=== PATIENT | male | born 1945 | race Caucasian/White ===

== ENCOUNTER 2018-11-15 20:21 | Emergency (ER) | payer MEDICARE ==
[~2018-11-15] VITALS: Ht 180.3 cm; Wt 95.2 kg
[~2018-11-15 20:21] MED LIST: AMLO5 PO; Aspir 8181 MG PO; CIPR500 PO; DIAZ10 PO; DOC250 PO; DOXY100T53 PO; FURO20 PO; FURO40 PO; GABA300 PO; HYDACE10B PO; HYDACE5; HYDCOR2.5C PR; HYDROCODONE; LACT10SY PO; LEVFLO500 PO; LIDO700A20 TOP; LISI20 PO; LOSA50 PO; METR500 PO; OMEG1CAP30 PO; ONDA4ODT MM; ONDA8 PO; OXYACE5T PO; OXYC15ER PO; OXYC5 PO; PHENA200 PO; POTCHL10ER PO; PROBIOTIC1 EAC1; ROSU10TA PO; RXCLIN PO; SAW PALMETTO PO; SULTRIDS PO; TAMS.4ER PO; TERA5 PO
[2018-11-15 20:54] LABS: BASOPHILS ABSOLUTE AUTO 0.04 K/mm3 (0.00-0.23); BASOPHILS PERCENT AUTO 0 % (0-2); EOSINOPHILS ABSOLUTE AUTO 0.03 K/mm3 (0.00-0.68); EOSINOPHILS PERCENT AUTO 0 % (0-6); Hemoglobin 13.1 g/dL (13.5-17.5); IMMATURE GRAN ABSOLUTE AUTO 0.06 K/mm3 (0.00-0.10); IMMATURE GRAN PERCENT AUTO 1 % (0-1); LYMPHOCYTES ABSOLUTE AUTO 1.14 K/mm3 (0.84-5.20); LYMPHOCYTES PERCENT AUTO 9 % (21-46); MONOCYTES ABSOLUTE AUTO 1.68 K/mm3 (0.16-1.47); MONOCYTES PERCENT AUTO 14 % (4-13); Mean Corpuscular HGB 31.2 pg (26.0-34.0); Mean Corpuscular HGB Conc 33.6 g/dL (31.5-36.5); Mean Corpuscular Volume 93 fL (80-100); Mean Platelet Volume 9.3 fL (9.1-12.4); NEUTROPHILS ABSOLUTE AUTO 9.51 K/mm3 (1.96-9.15); NEUTROPHILS PERCENT AUTO 76 % (41-73); Platelet Count 243 K/mm3 (150-400); RDW Coefficient Variation 11.6 % (11.7-14.2); RDW Standard Deviation 39.5 fL (35.1-46.3); White Blood Cell Count 12.46 K/mm3 (4.00-11.30)
[2018-11-15 21:15] LABS: Ethanol (Alcohol), Blood, Med <3 mg/dL; Magnesium, Blood 1.9 mg/dL (1.6-2.4); Troponin I <0.015 ng/mL (0.000-0.040)
[2018-11-15 21:16] LABS: Alanine Aminotransfer (ALT/SGP 35 U/L (12-78); Albumin, Blood 3.1 g/dL (3.4-5.0); Albumin/Globulin Ratio 0.8 (0.8-1.8); Alk Phos 81 U/L (50-136); Anion Gap 7 mmol/L (6-16); Aspartate Aminotrans (AST/SGOT 24 U/L (12-37); Blood Urea Nitrogen 13 mg/dL (8-24); Bun/Creatinine Ratio 16.7 (12.0-20.0); CO2, Blood 26 mmol/L (21-32); Calcium, Blood 9.6 mg/dL (8.5-10.1); Chloride, Blood 99 mmol/L (98-108); Creatinine, Blood 0.78 mg/dL (0.60-1.20); Globulin, Blood 3.9 g/dL (2.2-4.0); Glomerular Filtration Rate >60 (60-); Glucose, Blood 111 mg/dL (70-99); Potassium, Blood 3.3 mmol/L (3.5-5.5); Sodium, Blood 132 mmol/L (136-145)
[2018-11-15 22:44] LABS: Source, Urine Clean Catch
[2018-11-15 22:46] LABS: Appearance, Urine Cloudy (Clear); Bilirubin, Urine Neg (Neg); Blood, Urine 4+ (Neg); Color, Urine Amber (P-Yellow); Glucose Qualitative, Urine Neg (Neg); Ketones, Urine 2+ (Neg); Leukocyte Esterase, Urine 3+ (Neg); Nitrite, Urine Pos (Neg); Protein, Urine 2+ (Neg); Urobilinogen, Urine NORM (Normal)
[2018-11-15] MEDS ORDERED: METCAR500 PO (22:51)
[2018-11-15 22:53] LABS: Red Blood Cells, Urine 0-2 /hpf (0-2); White Blood Cells, Urine TNTC /hpf (0-5)
[2018-11-15 22:54] LABS: Bacteria Many /hpf; Squamous Epithelial Cells Rare /hpf (Few)
[2018-11-16] MEDS ORDERED: CEPH500 PO (00:04)
== END 2018-11-16 01:05 | disposition home or self-care (01) ==
LOC: ER 20:21
PROVIDERS: Emergency Medicine
DX: N39.0 Urinary tract infection, site not specified (principal); I10 Essential (primary) hypertension; Z79.899 Other long term (current) drug therapy
CPT/HCPCS: 36415; 71046; 80053; 81001; 83690; 83735; 84484; 85025; 87077; 87086; 87186; 93005; 93010; 96361; 96365; 96375; 99284-25; G0480; J0696; J1170; J2405; J7030

== ENCOUNTER 2019-03-27 18:47 | Emergency (ER) | payer MEDICARE ==
[~2019-03-27] VITALS: Ht 175.3 cm; Wt 108.9 kg
[~2019-03-27 18:47] MED LIST changes: +CEPH500 PO; +METCAR500 PO
[2019-03-27 19:46] LABS: BASOPHILS ABSOLUTE AUTO 0.04 K/mm3 (0.00-0.23); BASOPHILS PERCENT AUTO 1 % (0-2); EOSINOPHILS ABSOLUTE AUTO 0.63 K/mm3 (0.00-0.68); EOSINOPHILS PERCENT AUTO 7 % (0-6); Hematocrit 40.2 % (37.0-53.0); Hemoglobin 12.8 g/dL (13.5-17.5); IMMATURE GRAN ABSOLUTE AUTO 0.02 K/mm3 (0.00-0.10); IMMATURE GRAN PERCENT AUTO 0 % (0-1); LYMPHOCYTES PERCENT AUTO 30 % (21-46); MONOCYTES ABSOLUTE AUTO 0.68 K/mm3 (0.16-1.47); MONOCYTES PERCENT AUTO 8 % (4-13); Mean Corpuscular HGB Conc 31.8 g/dL (31.5-36.5); Mean Corpuscular Volume 94 fL (80-100); Mean Platelet Volume 9.4 fL (9.1-12.4); NEUTROPHILS ABSOLUTE AUTO 4.73 K/mm3 (1.96-9.15); NEUTROPHILS PERCENT AUTO 54 % (41-73); Platelet Count 271 K/mm3 (150-400); RDW Coefficient Variation 12.6 % (11.7-14.2); RDW Standard Deviation 43.4 fL (35.1-46.3); Red Blood Cell Count 4.27 M/mm3 (4.30-5.90)
[2019-03-27 20:06] LABS: Alanine Aminotransfer (ALT/SGP 22 U/L (12-78); Albumin, Blood 3.5 g/dL (3.4-5.0); Alk Phos 100 U/L (50-136); Anion Gap 4 mmol/L (6-16); Aspartate Aminotrans (AST/SGOT 13 U/L (12-37); Bilirubin, Total 0.7 mg/dL (0.1-1.0); Blood Urea Nitrogen 9 mg/dL (8-24); Bun/Creatinine Ratio 11.2 (12.0-20.0); CO2, Blood 28 mmol/L (21-32); Calcium, Blood 9.8 mg/dL (8.5-10.1); Chloride, Blood 109 mmol/L (98-108); Globulin, Blood 3.6 g/dL (2.2-4.0); Glomerular Filtration Rate >60 (60-); Glucose, Blood 104 mg/dL (70-99); Potassium, Blood 3.7 mmol/L (3.5-5.5); Sodium, Blood 141 mmol/L (136-145); Total Protein, Blood 7.1 g/dL (6.4-8.2)
== END 2019-03-27 20:36 | disposition home or self-care (01) ==
LOC: ER 18:47
PROVIDERS: Physician Assistant
DX: E87.70 Fluid overload, unspecified (principal); M48.02 Spinal stenosis, cervical region; F10.20 Alcohol dependence, uncomplicated; R29.898 Other symptoms and signs involving the musculoskeletal system; R60.0 Localized edema; I10 Essential (primary) hypertension; Z85.6 Personal history of leukemia; Z85.841 Personal history of malignant neoplasm of brain; Z88.8 Allergy status to other drugs, medicaments and biological substances; Z88.1 Allergy status to other antibiotic agents; Z79.899 Other long term (current) drug therapy; Z79.891 Long term (current) use of opiate analgesic
CPT/HCPCS: 36415; 72100; 80053; 83880; 85025; 96374; 99283-25; J1170

== ENCOUNTER 2019-04-10 10:05 | Day surgery (SDC) | payer MEDICARE ==
[~2019-04-10] VITALS: Ht 172.7 cm; Wt 107.1 kg
[~2019-04-10 10:05] MED LIST changes: +ALBU90OI INH; +Aspirin EC81 MG PO; +BACLOFEN5 MG PO; +D-MANNOSE PO; +Gentamicin S40 MG/ML IM; +LORA1SY PO; +OXYCODONE HCL E15 MG PO; +POTA10T PO; +PSEU120ER PO; +Procto-Kit28.35 G1 PR; +Robaxin750 MG PO; +STOOL SOFTENER PO; +Saw Palmetto160 MG PO; +Vitamin C100 M1 PO; +[UNRECOGNIZED DRUG - OTHER] PO
[2019-04-10] MEDS ORDERED: OXYC5 PO (10:55)
--- NOTE | 2019-04-10 11:46 | NUR ---
04/10/19 1146 Nelly Márquez PROCEDURE ROOM ENDO ROOM #1. MONITOR INTACT WITH CONTINUOUS PULSE OXIMETRY AND INTERMITTENT BP.
--- NOTE | 2019-04-10 11:48 | NUR ---
INTO SDS VIA W/C. STANDBY ASSIST TRANSFER TO BE. UNABLE TO STAND FOR WEIGHT. WEIGHT OBTAINED VIA W/C. History, Chart, Medications and Allergies reviewed before start of procedure.Patient confirms NPO status and agrees with scheduled surgery. DUONEB GIVEN PER ANETHESIA
--- NOTE | 2019-04-10 12:35 | NUR ---
RESUMED CARE OF PATIENT.
--- NOTE | 2019-04-10 12:36 | NUR ---
DR SY AT BEDSIDE TALKING TO PATIENT ABOUT PATIENT C/O OF EYE DISCOMFORT TO RIGHT EYE.
--- NOTE | 2019-04-10 12:58 | NUR ---
COFFEE OFFERED TO PATIENT PER REQUEST. RIGHT EYE TREATED WITH ERYTHROMYCIN OINTMENT PER DR SY.
--- NOTE | 2019-04-10 13:25 | NUR ---
1332- Discharge instructions reviewed with patient's . VSS. Breathing RA. verbalizes understanding. Copy given to to take home. Up to dress. assisting patient per her request. 1334- TRANSFERED TO W/C WITH ONE PERSON ASSIST AND ANOTHER NURSE STAND-BY ASSIST. 1337- TRANSVERED TO PERSONAL VEHICLE WITH ONE PERSON ASSIST WTIH ANOTHER NURSE STAND-BY ASSIST.
== END 2019-04-10 13:34 | disposition home or self-care (01) ==
LOC: ORSCMMR 10:05 → ORD 11:00 → ORSCMMR 13:34
PROVIDERS: Internal Medicine Gastroenterology
PROC: 0DBL8ZX Excision of Transverse Colon, Via Natural or Artificial Opening Endoscopic, Diagnostic (ICD-10-PCS; principal; 2019-04-10 11:00)
PROC: 0DBP8ZX Excision of Rectum, Via Natural or Artificial Opening Endoscopic, Diagnostic (ICD-10-PCS; principal; 2019-04-10 11:00)
DX: Z12.11 Encounter for screening for malignant neoplasm of colon (principal); D12.3 Benign neoplasm of transverse colon; K62.1 Rectal polyp; Z86.010 Personal history of colon polyps; K70.30 Alcoholic cirrhosis of liver without ascites; F43.10 Post-traumatic stress disorder, unspecified; G47.33 Obstructive sleep apnea (adult) (pediatric); E78.00 Pure hypercholesterolemia, unspecified; F32.9 Major depressive disorder, single episode, unspecified; J44.9 Chronic obstructive pulmonary disease, unspecified; N40.0 Benign prostatic hyperplasia without lower urinary tract symptoms; Z79.82 Long term (current) use of aspirin; Z79.899 Other long term (current) drug therapy
CPT/HCPCS: 88305; J2405; J2704; J3010; J7120

== ENCOUNTER 2019-08-02 20:06 | Emergency (ER) | payer MEDICARE ==
[~2019-08-02] VITALS: Ht 180.3 cm; Wt 113.4 kg
[2019-08-02] MEDS ORDERED: Keflex500 MG PO (23:52)
== END 2019-08-03 00:53 | disposition home or self-care (01) ==
LOC: ER 20:06
DX: S91.115A Laceration without foreign body of left lesser toe(s) without damage to nail, initial encounter (principal); I10 Essential (primary) hypertension; Z79.899 Other long term (current) drug therapy; X58.XXXA Exposure to other specified factors, initial encounter
CPT/HCPCS: 73630; 90471; 90714; 96372; 99283-25; A9270-GY; J3010

== ENCOUNTER 2023-04-21 17:59 | Emergency (ER) | payer MEDICARE ==
[~2023-04-21] VITALS: Ht 177.8 cm; Wt 105.2 kg
[~2023-04-21 17:59] MED LIST changes: +BUME1 PO; +C COMPLEX1000 M1 PO; +COMBIVENT RESPIM4 G1 INH; +CYCL10 PO; +Colace100 MG PO; +Crestor20 MG PO; +ENTRESTO 24 MG1 EACH PO; +HYDHCL25 PO; +Keflex500 MG PO; +LORA10ER PO; -LORA1SY PO; +Loratadine10 MG PO; +MAGNESIUM GLU27.5 M1 PO; +METO25ER PO; +MIRALAX17 GM PO; +Metrogel 1% 6060 GM TOP; +ONDA4 PO; -OXYCODONE HCL E15 MG PO; +ROXICODONE15 MG PO; -STOOL SOFTENER PO; -Vitamin C100 M1 PO
[2023-04-21 19:46] LABS: BASOPHILS ABSOLUTE AUTO 0.05 K/mm3 (0.00-0.23); BASOPHILS PERCENT AUTO 1 % (0-2); EOSINOPHILS ABSOLUTE AUTO 0.06 K/mm3 (0.00-0.68); EOSINOPHILS PERCENT AUTO 1 % (0-6); Hematocrit 32.4 % (37.0-53.0); Hemoglobin 11.2 g/dL (13.5-17.5); IMMATURE GRAN ABSOLUTE AUTO 0.02 K/mm3 (0.00-0.10); IMMATURE GRAN PERCENT AUTO 0 % (0-1); LYMPHOCYTES PERCENT AUTO 9 % (21-46); MONOCYTES ABSOLUTE AUTO 0.78 K/mm3 (0.16-1.47); MONOCYTES PERCENT AUTO 11 % (4-13); Mean Corpuscular HGB 30.7 pg (26.0-34.0); Mean Corpuscular HGB Conc 34.6 g/dL (31.5-36.5); Mean Corpuscular Volume 89 fL (80-100); Mean Platelet Volume 9.4 fL (9.1-12.4); NEUTROPHILS ABSOLUTE AUTO 5.31 K/mm3 (1.96-9.15); NEUTROPHILS PERCENT AUTO 78 % (41-73); Platelet Count 219 K/mm3 (150-400); RDW Coefficient Variation 12.6 % (11.7-14.2); RDW Standard Deviation 40.8 fL (35.1-46.3); Red Blood Cell Count 3.65 M/mm3 (4.30-5.90); White Blood Cell Count 6.82 K/mm3 (4.00-11.30)
[2023-04-21 20:10] LABS: Albumin, Blood 3.5 g/dL (3.4-5.0); Albumin/Globulin Ratio 0.9 (0.8-1.8); Bilirubin, Total 1.1 mg/dL (0.1-1.0); Bun/Creatinine Ratio 11.4 (12.0-20.0); Calcium, Blood 9.4 mg/dL (8.5-10.1); Creatinine, Blood 1.14 mg/dL (0.60-1.20); Globulin, Blood 3.7 g/dL (2.2-4.0); Potassium, Blood 3.3 mmol/L (3.5-5.5); Total Protein, Blood 7.2 g/dL (6.4-8.2)
[2023-04-21 20:46] VITALS: BP 112/61
== END 2023-04-21 21:00 | disposition home or self-care (01) ==
LOC: ER 17:59
PROVIDERS: Student in an Organized Health Care Education/Training Program
DX: M54.50 Low back pain, unspecified (principal); G89.29 Other chronic pain; Z79.891 Long term (current) use of opiate analgesic; Z79.82 Long term (current) use of aspirin; Z79.899 Other long term (current) drug therapy
CPT/HCPCS: 80053; 85025; 93005; 93010; 99284-25

== ENCOUNTER 2023-05-02 07:30 | Inpatient (IN) | payer MEDICARE ==
[~2023-05-02] VITALS: Ht 175.3 cm; Wt 101.2 kg
[2023-05-02] VITALS (20 sets, daily range): BP systolic 85–135; BP diastolic 55–127
[2023-05-02 08:13] LABS: BASOPHILS ABSOLUTE AUTO 0.01 K/mm3 (0.00-0.23); BASOPHILS PERCENT AUTO 0 % (0-2); EOSINOPHILS ABSOLUTE AUTO 0.01 K/mm3 (0.00-0.68); EOSINOPHILS PERCENT AUTO 0 % (0-6); Hematocrit 33.7 % (37.0-53.0); Hemoglobin 11.6 g/dL (13.5-17.5); IMMATURE GRAN ABSOLUTE AUTO 0.08 K/mm3 (0.00-0.10); IMMATURE GRAN PERCENT AUTO 1 % (0-1); LYMPHOCYTES ABSOLUTE AUTO 0.87 K/mm3 (0.84-5.20); LYMPHOCYTES PERCENT AUTO 10 % (21-46); MONOCYTES ABSOLUTE AUTO 0.46 K/mm3 (0.16-1.47); MONOCYTES PERCENT AUTO 5 % (4-13); Mean Corpuscular HGB 29.9 pg (26.0-34.0); Mean Corpuscular HGB Conc 34.4 g/dL (31.5-36.5); Mean Corpuscular Volume 87 fL (80-100); Mean Platelet Volume 9.6 fL (9.1-12.4); NEUTROPHILS ABSOLUTE AUTO 7.33 K/mm3 (1.96-9.15); NEUTROPHILS PERCENT AUTO 84 % (41-73); Platelet Count 271 K/mm3 (150-400); RDW Coefficient Variation 13.2 % (11.7-14.2); RDW Standard Deviation 41.8 fL (35.1-46.3); Red Blood Cell Count 3.88 M/mm3 (4.30-5.90); White Blood Cell Count 8.76 K/mm3 (4.00-11.30)
[2023-05-02 08:24] LABS: Base Excess Venous -7.6 mmol/L; Bicarbonate Venous 18.2 mmol/L (24.0-30.0); PCO2 Venous 35.6 mmHg (38-42); pH Blood Venous 7.32 (7.34-7.37)
[2023-05-02 08:28] LABS: International Normalized Ratio 0.99; Prothrombin Time Results 10.4 Sec (9.7-11.5)
[2023-05-02 08:34] LABS: Albumin/Globulin Ratio 0.7 (0.8-1.8); Bilirubin, Total 0.9 mg/dL (0.1-1.0); Bun/Creatinine Ratio 12.7 (12.0-20.0); Calcium, Blood 9.1 mg/dL (8.5-10.1); Creatinine, Blood 7.22 mg/dL (0.60-1.20); Globulin, Blood 4.2 g/dL (2.2-4.0); Magnesium, Blood 1.6 mg/dL (1.6-2.4); Potassium, Blood 3.8 mmol/L (3.5-5.5); Thyroid Stimulating Hormone 0.771 uIU/mL (0.360-4.800); Total Protein, Blood 7.2 g/dL (6.4-8.2)
[2023-05-02 09:05] LABS: Influenza A, PCR NEGATIVE (NEGATIVE); Influenza B, PCR NEGATIVE (NEGATIVE); Resp Syncytial Virus, PCR NEGATIVE (NEGATIVE)
[2023-05-02 09:28] LABS: SARS-Cov-2 (COVID-19) PCR, MMC POSITIVE (NEGATIVE)
[2023-05-02 09:49] LABS: Source, Urine Straight Cath
[2023-05-02 10:10] LABS: Appearance, Urine Turbid (Clear); Bilirubin, Urine Neg (Neg); Blood, Urine 4+ (Neg); Color, Urine Yellow (P-Yellow); Glucose Qualitative, Urine Neg (Neg); Ketones, Urine Neg (Neg); Leukocyte Esterase, Urine 3+ (Neg); Nitrite, Urine Neg (Neg); Protein, Urine 3+ (Neg); Specific Gravity, Urine 1.015 (1.003-1.022); Urobilinogen, Urine NORM (Normal)
[2023-05-02 10:15] LABS: White Blood Cells, Urine TNTC /hpf (0-5)
[2023-05-02 10:18] LABS: Bacteria Many /hpf; Squamous Epithelial Cells Few /hpf (Few)
--- NOTE | 2023-05-02 11:30 | NUR ---
PT ADMIT.... PT ARRIVED TO THE UNIT AT 1115, HE IS A&O TO SELF ONLY, HE IS VERY ELIM IRA. PT IS IN AFIB W/RVR 120'S W/PVCs. PT'S BP IS SOFT WITH SBPs IN THE 90'S BUT MAPS ARE >65. L/S CLEAR IN THE UPPER LOBES COARSE AND DIM IN THE MID/LOWER LOBES. HE IS ON 2L NC WITH O2 SATS >90%. PT WAS INCONT OF URINE, URINE IS DARK AND VERY FOUL SMELLING. DURING AMAURY CARE/ATTENDS CHANGE IT WAS NOTED THE PT'S GROIN AND GLUTEAL FOLD WAS VERY RED AND PAINFUL WITH A MOIST YEASTY RASH. PICTURES WERE TAKEN AND IN THE CHART. PT'S AT THE BEDSIDE SHE WAS ABLE TO PROVIDE THE PT'S HEALTH HISTORY AND MEDICATION LIST. WILL CONTINUE TO MONITOR.
[2023-05-02 15:39] LABS: Bun/Creatinine Ratio 13.7 (12.0-20.0); Calcium, Blood 8.2 mg/dL (8.5-10.1); Creatinine, Blood 6.14 mg/dL (0.60-1.20); Potassium, Blood 3.7 mmol/L (3.5-5.5)
--- NOTE | 2023-05-02 17:15 | NUR ---
PT TRANSFER.... PT TRANSFER TO PCU, VS STABLE AT THE TIME OF TRANSFER. ALL OF PT'S BELONGINGS PACKED AND SENT WITH THE PT. PT'S AT THE BEDSIDE UPDATED BY THIS RN ABOUT PT'S CONDITION AND PLAN OF CARE. A PURWICK WAS PLACED BY THIS RN WHICH SEEMED TO BE WORKING WELL TO KEEP URINE OFF THE PT'S GROIN RASH. REPORT WAS GIVEN TO ALKA RO.
--- NOTE | 2023-05-02 17:37 | NUR ---
ASSUMPTION OF CARE PT TRANSFERED TO PCU 11 AT ABOUT 1705 THIS EVENING. HE WAS SITUATED IN THE BED AND HIS IS AT BEDSIDE. LR IS INFUSING AT 100ML/HR. A PURWICK IS SET UP TO SUCTION DUE TO HIS ANATOMY. SKIN IS EXCORIATED, ANTIFUNGAL POWDER IS APPLIED AND HIS BRIEF IS C/D. FIRE IGNITION EDUCATION PROVIDED.
[2023-05-03] VITALS (9 sets, daily range): BP systolic 91–126; BP diastolic 54–83
[2023-05-03 06:38] LABS: BASOPHILS ABSOLUTE AUTO 0.02 K/mm3 (0.00-0.23); BASOPHILS PERCENT AUTO 0 % (0-2); EOSINOPHILS ABSOLUTE AUTO 0.01 K/mm3 (0.00-0.68); EOSINOPHILS PERCENT AUTO 0 % (0-6); Hematocrit 35.6 % (37.0-53.0); Hemoglobin 11.8 g/dL (13.5-17.5); IMMATURE GRAN ABSOLUTE AUTO 0.08 K/mm3 (0.00-0.10); IMMATURE GRAN PERCENT AUTO 1 % (0-1); LYMPHOCYTES PERCENT AUTO 11 % (21-46); MONOCYTES ABSOLUTE AUTO 0.46 K/mm3 (0.16-1.47); MONOCYTES PERCENT AUTO 6 % (4-13); Mean Corpuscular HGB 29.8 pg (26.0-34.0); Mean Corpuscular HGB Conc 33.1 g/dL (31.5-36.5); Mean Corpuscular Volume 90 fL (80-100); Mean Platelet Volume 9.3 fL (9.1-12.4); NEUTROPHILS PERCENT AUTO 81 % (41-73); Platelet Count 256 K/mm3 (150-400); RDW Coefficient Variation 13.4 % (11.7-14.2); RDW Standard Deviation 44.6 fL (35.1-46.3); Red Blood Cell Count 3.96 M/mm3 (4.30-5.90); White Blood Cell Count 7.37 K/mm3 (4.00-11.30)
[2023-05-03 07:09] LABS: Albumin, Blood 2.6 g/dL (3.4-5.0); Albumin/Globulin Ratio 0.6 (0.8-1.8); Bilirubin, Total 0.8 mg/dL (0.1-1.0); Bun/Creatinine Ratio 16.5 (12.0-20.0); Calcium, Blood 8.4 mg/dL (8.5-10.1); Creatinine, Blood 4.85 mg/dL (0.60-1.20); Potassium, Blood 3.6 mmol/L (3.5-5.5); Total Protein, Blood 6.6 g/dL (6.4-8.2)
--- NOTE | 2023-05-03 07:16 | NUR ---
SHIFT SUMMARY PATIENT ALERT AND ORIENTED TO SELF AND FAMILY ONLY. MAX ASSIST FOR REPOSITIONING IN BED. PATIENT HAD NO COMPLAINTS OF SHORTNES OF BREATH, TITRATED TO ROOM AIR. HEART RATE HAS BEEN TRENDING UP OVERNIGHT, REQUIRED A ONE TIME DOSE OF IV LOPRESSER. PATIENT DENIES CHEST PAIN. WILL CONTINUE TO MONITOR. CALL LIGHT WITHIN REACH.
--- NOTE | 2023-05-03 13:57 | NUR ---
Shift Summary Pt alert, oriented to self and spouse only. Pt on bedrest, wheelchair bound at baseline, repositioned q2. Pt denies pain, chest pain/pressure, nausea, dizziness and numb/tingling. Pt reports sob at times, spo2 >90% on ra, breathing even and unlabored. Abd soft, tender on palp, +bt noted. Redness noted to ble and groin. Tele afib 100-140, soft bp noted, 500CC LR bolus given this am. Other vss. No other acute changes noted. Report givne to RN assuming care of patient.
[2023-05-03 15:37] LABS: Bun/Creatinine Ratio 17.8 (12.0-20.0); Calcium, Blood 8.3 mg/dL (8.5-10.1); Creatinine, Blood 4.37 mg/dL (0.60-1.20); Potassium, Blood 3.5 mmol/L (3.5-5.5)
--- NOTE | 2023-05-03 17:56 | NUR ---
TRANSFER OF CARE/SUMMARY: REPORT RECEIVED FROM ENRIQUE RO, ASSUMED CARE OF PT AT 1400. AT THE BEDSIDE ALL T/O THE SHIFT. PT REQUESTED WATER WHEN THIS RN ROUNDED, PT WAS TOLERATING LIQUIDS NO COUGHING EPISODES. PT ABLE TO TOLERATE SOFT FOODS WELL, MEDS WHOLE WITH WATER. PT WAS MORE ALERT AND TALKING TODAY STILL HAS SOME CONFUSION/FORGETFULNESS ABLE TO ANSWER QUESTIONS APPROPRIATELY. PT STARTED YELLING OUT DUE TO PAIN, PT STATED HE HAS CHRONIC BACK PAIN HAD MULTIPLE BACK SURGERIES, ALSO HAS SOME SHOOTING PAIN ON BLE, AND LEFT RIB AND SHOULDER D/T POSITIONING, PT HAS BEEN REPOSITIONED EVERY 30 MINS, PER PT AND 'S REQUEST. PT STARTED ON HOME DOSE OF PAIN MEDICINE 15MG OXYCODONE, PT REPORTED EFFECTIVENESS. PT ALSO STARTED LR AT 150MLS/HR. SBP NOW AT 100'S MAP >65, HRR AFIB TACHS UP TO 140'S IF PT IS IN PAIN OR WITH EXERTION, SATS ABOVE 93% ON RA, AFEBRILE. PT INCONTINENT OF BOWEL AND BLADDER ATTENDS IN PLACE WITH TEEPEE PADS, BLADDER SCANNED BEFORE THE END OF THE SHIFT HAD ONLY >200MLS URINE RETAINED. PT NOW EATING DINNER ABLE TO HELP FEED PT. NO OTHER ISSUES REPORTED FOR THE SHIFT, CALL LIGHTS IN REACH WILL REPORT TO ONCOMING SHIFT
[2023-05-04 04:11] VITALS: BP 107/86
[2023-05-04 04:45] LABS: Hematocrit 31.7 % (37.0-53.0); Hemoglobin 10.7 g/dL (13.5-17.5); Mean Corpuscular HGB 29.6 pg (26.0-34.0); Mean Corpuscular HGB Conc 33.8 g/dL (31.5-36.5); Mean Corpuscular Volume 88 fL (80-100); Platelet Count 268 K/mm3 (150-400); RDW Coefficient Variation 13.4 % (11.7-14.2); RDW Standard Deviation 43.2 fL (35.1-46.3); Red Blood Cell Count 3.62 M/mm3 (4.30-5.90); White Blood Cell Count 4.78 K/mm3 (4.00-11.30)
[2023-05-04 05:08] LABS: Albumin, Blood 2.3 g/dL (3.4-5.0); Albumin/Globulin Ratio 0.6 (0.8-1.8); Bilirubin, Total 0.6 mg/dL (0.1-1.0); Bun/Creatinine Ratio 18.5 (12.0-20.0); Calcium, Blood 8.3 mg/dL (8.5-10.1); Creatinine, Blood 3.73 mg/dL (0.60-1.20); Globulin, Blood 3.8 g/dL (2.2-4.0); Potassium, Blood 3.2 mmol/L (3.5-5.5); Total Protein, Blood 6.1 g/dL (6.4-8.2)
[2023-05-04 05:46] LABS: BAND PERCENT MAN 3 % (0-8); BASOPHILS PERCENT MAN 0 % (0-2); EOSINOPHILS PERCENT MAN 0 % (0-6); LYMPHOCYTES ABSOLUTE MAN 0.76 K/mm3 (0.84-5.20); LYMPHOCYTES PERCENT MAN 16 % (21-46); MONOCYTES ABSOLUTE MAN 0.52 K/mm3 (0.16-1.47); MONOCYTES PERCENT MAN 11 % (4-13); MYELOCYTE ABSOLUTE MAN 0.04 K/mm3 (0.00-0.00); MYELOCYTE PERCENT MAN 1 % (0-0); NEUTROPHILS ABSOLUTE MAN 3.44 K/mm3 (1.96-9.15); SEG NEUTROPHILS PERCENT MAN 69 % (41-73); TOTAL CELLS COUNTED 100
--- NOTE | 2023-05-04 06:37 | NUR ---
SHIFT SUMMARY PATIENT ALERT AND ORIENTED TO SELF AND FAMILY. BECOMING MORE ALERT AND CONVERSATIONAL NIGHT HAS GONE ON. HAD A SHORT TIME FRAME WHERE HE WAS EXPERIENCING SLEEP APNEA AND REQUIRED 4 LITERS O2 TO MAINTAIN O2 SATURATION. PATIENT IS NOW BACK ON ROOM AIR WITH SPO2 AT 92%. VITAL SIGNS STABLE. WILL CONTINUE TO MONITOR. CALL LIGHT WITHIN REACH.
[2023-05-04 08:13] VITALS: BP 105/69
[2023-05-04 08:28] VITALS: BP 113/83
--- NOTE | 2023-05-04 09:30 | NUR ---
AM NOTE: PATIENT ALERT TO SELF AND . ANSWERING "I DON'T KNOW" TO MOST ORIENTING QUESTION. OVERALL VERY WEAK. NOT ABLE TO FOLLOW SIMPLE COMMANDS SUCH LIFTING ARMS; PATIENT STATES "I CAN'T". PT ORDERS IN PALCE. PERRLA. DENIES NUMBNESS/TINGLING. ON ROOM AIR SATING ABOVE 90%. DENIES SOB/COUGH. EVEN AND UNLABORED RESPIRATIONS. TELE SHOWING AFIB WITH HR 90-110'S AT REST AND UP TO 140'S WHEN AWAKE AND TALKING. PO METOPROLOL GIVEN THIS AM. BP STABLE. DENIES CHEST PAIN/PRESSURE/PALPITATIONS. NO SIGNS OF EDEMA NOTED. BOWEL TONES PRESENT. PATIENT COMPLAINS OF ABDOMINAL PAIN, MIRALAX GIVEN THIS AM. ATTENDS IN PLACE. PATIENT VOIDING YELLOW/EVAN URINE. GROIN/AMAURY AREA RED AND EXCORIATED - CLEANED AND POWDER APPLIED. SKIN OVERALL PALE. PATIENT COMPLAINS OF PAIN IN BACK AND NECK WHEN TURNING IN BED. Q2 TURNING, NEEDING MAX ASSISTANCE. REMAINS AT BEDSIDE. CALL LIGHT IN REACH. DR. DEY AND DR. FRAGA BY THIS AM. ORDERS FOR MEDICAL WITH TELE. PATIENT AND SLEEPING AT THIS TIME.
[2023-05-04 11:37] VITALS: BP 107/79
--- NOTE | 2023-05-04 12:30 | NUR ---
PATIENT UP TO EDGE OF BED WITH PHYSICAL THERAPY. AFTERNOON VITALS STABLE. PATIENT DENIES PAIN. SLEEPING IN BETWEEN CARES. REMAINS AT BEDSIDE. AFTERNOON BED BATH GIVEN AND POWERGLIDE DRESSING CHANGED. PATIENT DENIED LUNCH, LEFT AT BEDSIDE PER SO SHE COULD ASSIST PATIENT WHEN HE IS READY. LR AND MAG INFUSING PER EMAR. NO CHANGES TO TELE.
--- NOTE | 2023-05-04 13:32 | NUR ---
GEOTECHNICAL FIELD TECHNICIAN NOTIFIED THIS RN OF POSSIBLE RHYTHM CHANGE, DR. MILLER CALLED. EKG ORDERS IN PLACE. EKG READING NORMAL SINUS RHYTHM, PLACED IN PAPER CHART. DR. MILLER CALLED BACK AND UPDATED ON EKG.
[2023-05-04 15:19] LABS: Bun/Creatinine Ratio 19.5 (12.0-20.0); Calcium, Blood 8.7 mg/dL (8.5-10.1); Creatinine, Blood 3.43 mg/dL (0.60-1.20); Potassium, Blood 3.4 mmol/L (3.5-5.5)
[2023-05-04 16:10] VITALS: BP 107/69
--- NOTE | 2023-05-04 17:38 | NUR ---
SHIFT SUMMARY: NO ACUTE CHANGES. PATIENT REMAINS TIRED AND SLEEPING MOST OF SHIFT. WAKES TO VERBAL STIMULI. VERY HARD OF HEARING AND CONFUSED. STATES HIS CONFUSION IS IMPROVING, BASELINE DEMENTIA. REMAINS ON ROOM AIR. Q2 TURNING AND NEEDED. Q4 ORAL CARE. TELE SHOWING SR WITH HR 90'S. BP STABLE. VOIDING IN ATTENDS WITH WRAPS. IV FLUIDS INFUSING PER EMAR. POOR APPEATITE, ONLY EATING A FEW BITES WITH MEALS. DRINKING WATER AND MILK. AT BEDSIDE THROUGHOUT SHIFT. PILLS CRUSHED IN APPLESAUCE. CALL LIGHT IN REACH.
--- NOTE | 2023-05-04 17:47 | NUR ---
PLAN TO TRANSFER TO [facility]
--- NOTE | 2023-05-04 18:29 | NUR ---
TRANSFER: REPORTED OFF TO [facility] RO ON MEDICAL FLOOR. NO ACUTE CHANGES. PATIENT LEFT UNIT WITH AND ALL PERSONAL BELONGINGS.
--- NOTE | 2023-05-04 20:07 | NUR ---
SHIFT SUMMARY PT TRANSFERED FROM PCU AT ABOUT 1830. RECIEVED REPORT FROM JOAN. PT AND ORIENTED TO ROOM. PT STARTED ON NEW BAG OF LR. NO C/O PAIN. BED IN LOWEST POSITION AND IN ROOM. REPORT GIVEN TO ONCOMING NURSE.
[2023-05-04 20:51] VITALS: BP 129/91
[2023-05-05 05:52] VITALS: BP 115/74
--- NOTE | 2023-05-05 05:58 | NUR ---
SHIFT SUMMARY PT IS ALERT AND ORIENTED TO SELF AND . PT'S ANSWERS ALL QUESTIONS FOR . REMAINED AT BEDSIDE T/O NOC. VSS, NSR @95 PER COFFEE BREAK ATTENDANT. C/O PAIN IN HIS BACK, MANAGED WITH 15 MG PO ROXICODONE. VERY MUCH DISLIKES PILLS CRUSHED IN APPLESAUCE OR PUDDING. SAID HE TAKES PILLS WHOLE AT HOME. INCONTINENT OF LARGE AMOUNTS OF URINE, PERIAREA SKIN IS VERY EXCORIATED. NO BM THIS SHIFT. BED ALARM SET FOR PATIENTS SAFETY. BED IN LOWEST POSITION, CALL LIGHT WITHIN REACH. FIRE SAFETY CHECKS COMPLETE
[2023-05-05 06:31] LABS: Hematocrit 36.6 % (37.0-53.0); Hemoglobin 11.9 g/dL (13.5-17.5); Mean Corpuscular HGB 29.6 pg (26.0-34.0); Mean Corpuscular HGB Conc 32.5 g/dL (31.5-36.5); Mean Corpuscular Volume 91 fL (80-100); Mean Platelet Volume 8.9 fL (9.1-12.4); Platelet Count 285 K/mm3 (150-400); RDW Coefficient Variation 13.6 % (11.7-14.2); RDW Standard Deviation 45.7 fL (35.1-46.3); Red Blood Cell Count 4.02 M/mm3 (4.30-5.90); White Blood Cell Count 6.09 K/mm3 (4.00-11.30)
[2023-05-05 06:42] LABS: Bun/Creatinine Ratio 16.7 (12.0-20.0); Calcium, Blood 8.7 mg/dL (8.5-10.1); Creatinine, Blood 3.17 mg/dL (0.60-1.20); Potassium, Blood 3.5 mmol/L (3.5-5.5)
[2023-05-05 07:29] VITALS: BP 100/89
[2023-05-05 09:16] LABS: BAND PERCENT MAN 1 % (0-8); BASOPHILS PERCENT MAN 0 % (0-2); EOSINOPHILS PERCENT MAN 0 % (0-6); LYMPHOCYTES ABSOLUTE MAN 0.36 K/mm3 (0.84-5.20); LYMPHOCYTES PERCENT MAN 6 % (21-46); METAMYELOCYTE ABSOLUTE MAN 0.12 K/mm3 (0.00-0.00); METAMYELOCYTE PERCENT MAN 2 % (0-0); MONOCYTES ABSOLUTE MAN 0.24 K/mm3 (0.16-1.47); MONOCYTES PERCENT MAN 4 % (4-13); NEUTROPHILS ABSOLUTE MAN 5.35 K/mm3 (1.96-9.15); SEG NEUTROPHILS PERCENT MAN 87 % (41-73); TOTAL CELLS COUNTED 100
[2023-05-05 15:35] VITALS: BP 109/96
--- NOTE | 2023-05-05 20:10 | NUR ---
SHIFT SUMMARY PATIENT RESTLESS THIS AM DESPITE PAIN MEDICATION AND REPOSITIONING FOR COMFORT. HE FINALLY SETTLED DOWN THIS AFTERNOON AFTER HAVING A LARGE BM IN BED AND RESTED FOR A COUPLE HOURS. AT BEDSIDE THROUGHOUT SHIFT. PATIENT DID NOT TOLERATE SOFT BITE SIZE FOOD THIS AFTERNOON AND CHOKED ON A PEICE OF MEAT PER MEHREEN MULTIMEDIA TECHNICIAN, PATIENT COUGHING AFTER AND HAVING COARSE SOUNDS IN RIGHT LUNG AND DIMINISHED IN LEFT. DR DEY NOTIFIED FOR DR FRAGA AND ORDER RECIEVED FOR MECHANICAL SOFT DIET, AND ST EVAL PATIENT LATER TOLERATED WATER WITH NO STRAW, PATIENT COUGHING WITH STRAW USE, NOT COUGHING AFTER DRINKING WITH NO STRAW. PATIENT TOLERATED OXYCODONE THIS EVENING CRUSHED IN VANILLA PUDDING. PATIENT MEDICATED PER EMAR. BED IN LOW POSITION, CALL LIGHT IN REACH. PATIENT DOES NOT CALL.
[2023-05-05 20:41] VITALS: BP 125/75
[2023-05-06 04:46] VITALS: BP 98/79
[2023-05-06 04:49] VITALS: BP 139/91
--- NOTE | 2023-05-06 05:59 | NUR ---
SHIFT SUMMARY PT IS ALERT, ORIENTED TO SELF AND AND FRIEND INGA. REMAINED AT BEDSIDE T/O NOC. HYPERTENSIVE THIS MORNING. VERY RESTLESS AND AGITATED MOST OF NIGHT. PULLED POWERGLIDE IV. IM ZYPREXA GIVEN. C/O PAIN, HOLLERS OUT 'OUCH' WITH EVERY MOVE. LARGE INCONTINENT VOIDS, BRIEF IN PLACE. PERIAREA SKIN VERY EXCORIATED AND RAW FROM BEING CONSTANTLY MOIST. NO BM THIS SHIFT. BED ALARM SET FOR PT'S SAFETY, CALL LIGHT WITHIN REACH. BED IN LOWEST POSITION. FIRE SAFETY CHECKS COMPLETE
[2023-05-06 07:32] LABS: Bun/Creatinine Ratio 13.9 (12.0-20.0); Calcium, Blood 8.9 mg/dL (8.5-10.1); Creatinine, Blood 3.03 mg/dL (0.60-1.20); Potassium, Blood 3.3 mmol/L (3.5-5.5)
[2023-05-06 08:08] VITALS: BP 135/85
--- NOTE | 2023-05-06 20:07 | NUR ---
SHIFT SUMMARY: PT A&O X1 AND OCCASIONALLY TO FAMILY. PT HAS BEEN AGITATED ALL SHIFT. PT PULLED RFA IV OUT THIS AM WHILE INFUSING POTASSIUM. UNAWARE OF WHEN DURING INFUSION PT PULLED LINE. NEW IV ATTEMPTED BUT PT TO COMBATIVE FOR REATTEMPT. HOSPITALIST AWARE. PT HAD REPEAT SPEECH EVAL THIS AM AND CHANGED TO NPO. CALLED HOSPITALIST AND GOT ORDER FOR IM ZYPREXA. MED GIVEN W/ LITTLE IMPROVEMENT. DORMITORY COUNSELOR TO ATTEMPT NEW IV. FAMILY AT BEDSIDE THROUGHOUT SHIFT. CALL LIGHT IN REACH. BED IN LOWEST POSITION.
[2023-05-06 20:57] VITALS: BP 143/90
--- NOTE | 2023-05-07 05:52 | NUR ---
SHIFT SUMMARY 78 YR M ADMITTED ON 05/02/23 FOR SEVERE SEPSIS. FULL CODE. PT HAS BEEN AGITATED FOR THIS ENTIRE SHIFT. HE HAS CONTINOUSLY YELLED OUT "HELLO" AND "HELP" OVER AND OVER ALL NIGHT. ANY TIME STAFF WAS IN THE ROOM HE CALLED US NAMES, TOLD US HE HATED US, AND THREATEND TO HIT OR KICK US. PT WAS AT BEDSIDE AT BEGINNING OF SHIFT BUT CALLED HER SON TO COME IN AND TAKE HER PLACE STATING THAT SHE "CANNOT TAKE IT ANYMORE". WENT HOME AND SON STAYED BRIEFLY THEN LEFT. HOSPITALIST WAS CONTACTED ASKED TO CHANGE PO MEDS TO IV SINCE SPEECH THERAPY MADE PT NPO DUE TO ASPIRATION RISK. IV MORPHINE WAS RX'D AND GIVEN W/ LITTLE AFFECT. IV ZYPREXA WAS GIVEN Q4 FOR AGITATION, ALSO WITH LITTLE TO NO AFFECT. PT HAS NOT SLEPT ALL NIGHT. HE JUST CONTINUALLY YELLS, SCREAMS, AND CUSSES. HE IS NOT ALERT AND ORIENTED AND DOES NOT APPEAR TO BE FULLY AWARE OF HIS ACTIONS. FAMILY STATES THEY HAVE ALOT OF QUESTIONS AND WANT TO SPEAK W/ THE DOCTOR IN THE A.M.
[2023-05-07 06:36] VITALS: BP 138/95
[2023-05-07 07:37] VITALS: BP 148/101
--- NOTE | 2023-05-07 11:38 | NUR ---
CALL FROM PT'S SON AND [id number] REQUESTING UPDATE. THEY WILL START TO HEAD INTO FACILITY TO MEET WITH RADHA. DR. GREEN TO BE NOTIFIED ONCE THEY'RE HERE.
[2023-05-07 13:11] LABS: Hematocrit 35.8 % (37.0-53.0); Hemoglobin 11.2 g/dL (13.5-17.5); Mean Corpuscular HGB 29.6 pg (26.0-34.0); Mean Corpuscular HGB Conc 31.3 g/dL (31.5-36.5); Mean Corpuscular Volume 95 fL (80-100); Mean Platelet Volume 9.3 fL (9.1-12.4); Platelet Count 327 K/mm3 (150-400); RDW Coefficient Variation 13.4 % (11.7-14.2); RDW Standard Deviation 46.1 fL (35.1-46.3); Red Blood Cell Count 3.78 M/mm3 (4.30-5.90); White Blood Cell Count 7.01 K/mm3 (4.00-11.30)
[2023-05-07 13:42] LABS: Albumin, Blood 2.3 g/dL (3.4-5.0); Albumin/Globulin Ratio 0.6 (0.8-1.8); Bilirubin, Total 0.8 mg/dL (0.1-1.0); Bun/Creatinine Ratio 12.6 (12.0-20.0); Calcium, Blood 8.6 mg/dL (8.5-10.1); Creatinine, Blood 2.62 mg/dL (0.60-1.20); Magnesium, Blood 1.5 mg/dL (1.6-2.4); Potassium, Blood 3.3 mmol/L (3.5-5.5); Total Protein, Blood 6.3 g/dL (6.4-8.2)
[2023-05-07 15:52] VITALS: BP 129/85
[2023-05-07 17:48] LABS: BAND PERCENT MAN 2 % (0-8); BASOPHILS PERCENT MAN 0 % (0-2); EOSINOPHILS PERCENT MAN 0 % (0-6); LYMPHOCYTES % ATYPICAL MANUAL 3 % (0-0); LYMPHOCYTES ABSOLUTE MAN 1.54 K/mm3 (0.84-5.20); LYMPHOCYTES PERCENT MAN 19 % (21-46); MONOCYTES ABSOLUTE MAN 0.56 K/mm3 (0.16-1.47); MONOCYTES PERCENT MAN 8 % (4-13); SEG NEUTROPHILS PERCENT MAN 68 % (41-73); TOTAL CELLS COUNTED 100
--- NOTE | 2023-05-07 20:01 | NUR ---
DAY SHIFT SUMMARY ALERT, BUT NOT ORIENTED. YELLS FOR HELP OR MOANS, BUT SEEMINLY SLEEPING WHILE DOING THIS. DIFFICULT TO AROUSE AND NOT REDIRECTABLE. COMBATIVE DURING CHANGES. ORDER FOR DIAZEPAM Q4H AND MORPHINE Q4H (ALTERNATING Q2H) HAS BEEN HELPFUL IN PROVIDING HIM WITH SOME REST. FAMILY IN TODAY; DECLINED HOSPICE AT THIS TIME. LABS DRAWN AND MAGNESIUM AND POTASSIUM REPLACED. BISACODYL SUPPOSITORY ADMINISTERED FOR ABDOMINAL DISTENTION, NO BOWEL MOVEMENT AND HYPOACTIVE BOWEL TONES TODAY. CONTINUES NPO STATUS. REPORT TO ONCOMING RN.
[2023-05-07 20:30] VITALS: BP 104/72
[2023-05-07 20:31] VITALS: BP 108/67
[2023-05-08 04:58] VITALS: BP 148/98
[2023-05-08 07:56] VITALS: BP 148/90
[2023-05-08 09:37] LABS: Hematocrit 32.8 % (37.0-53.0); Hemoglobin 10.8 g/dL (13.5-17.5); Mean Corpuscular HGB 29.9 pg (26.0-34.0); Mean Corpuscular HGB Conc 32.9 g/dL (31.5-36.5); Mean Corpuscular Volume 91 fL (80-100); Mean Platelet Volume 9.3 fL (9.1-12.4); Platelet Count 373 K/mm3 (150-400); RDW Coefficient Variation 13.5 % (11.7-14.2); RDW Standard Deviation 44.7 fL (35.1-46.3); Red Blood Cell Count 3.61 M/mm3 (4.30-5.90); White Blood Cell Count 7.13 K/mm3 (4.00-11.30)
[2023-05-08 09:56] LABS: Albumin, Blood 2.3 g/dL (3.4-5.0); Albumin/Globulin Ratio 0.5 (0.8-1.8); Bilirubin, Total 0.8 mg/dL (0.1-1.0); Bun/Creatinine Ratio 12.1 (12.0-20.0); Calcium, Blood 8.7 mg/dL (8.5-10.1); Creatinine, Blood 2.39 mg/dL (0.60-1.20); Globulin, Blood 4.2 g/dL (2.2-4.0); Potassium, Blood 2.8 mmol/L (3.5-5.5); Total Protein, Blood 6.5 g/dL (6.4-8.2)
[2023-05-08 16:19] VITALS: BP 132/110
--- NOTE | 2023-05-08 17:55 | NUR ---
SHIFT SUMMARY PT AxOx1. PT IS ON BEDREST WITH SIGNIFICANTLY ALTERED MENTATION. PT DOES NOT ENGAGE IN VERBAL CONVERSATION OR RESPOND TO QUESTIONS. BASED ON BODY LANGUAGE AND TENDENCY TO HOLLAR OUT OFTEN THE PATIENT APPEARED AGITATED AND UNCOMFORTABLE T/O THIS SHIFT. PT WAS MEDICATED PER EMAR WITH NOTABLE RESTFUL PERIODS AFTERWARD. PT IS NPO FOR SWALLOW PRECAUTIONS. IV FLUIDS RUNNING. PT HAD ABDOMINAL ULTRASOUND THIS SHIFT. NO BM'S TODAY. THIS RN SPOKE WITH PT'S SON AND DAUGHTER IN LAW ON THE PHONE TODAY, UPDATING THEM ON PLAN OF CARE. PT IS CURRENTLY RESTING IN BED. CALL LIGHT IN REACH. APPEARS CALM AT THIS TIME.
--- NOTE | 2023-05-08 18:44 | NUR ---
Case Conference: Spoke to pt's Gisele this evening by phone. She states she clearly remembers 2 years ago when pt was sent home with hospice, and he was discharged due to continued improvement. She states she was able to get 2 more good years with him. She is adamant he remain a full code, as she states her brother in law " and was brought back", and she believes her can be as well. She also states, "You were all ready to give up on dad last time, i'm not gonna believe you this time". She did take my name and phone number, states we can "visit more tomorrow". Palliative care will remain available.
[2023-05-08 20:57] VITALS: BP 142/93
[2023-05-09 05:03] VITALS: BP 142/94
[2023-05-09 06:00] LABS: Hemoglobin 11.7 g/dL (13.5-17.5)
[2023-05-09 06:28] LABS: Bun/Creatinine Ratio 10.4 (12.0-20.0); Calcium, Blood 8.8 mg/dL (8.5-10.1); Creatinine, Blood 2.21 mg/dL (0.60-1.20); Magnesium, Blood 1.8 mg/dL (1.6-2.4); Potassium, Blood 3.3 mmol/L (3.5-5.5)
--- NOTE | 2023-05-09 07:38 | NUR ---
SHIFT SUMMARY PT IS AWAKE, NOT ORIENTED. HYPERTENSIVE, TACHY IN THE 110'S, AFEBRILE, O2 SATS >95% ON RA. HOLLERS OUT CONSTANTLY, CUSSES AT THE NURSES WHEN CLEANING HIM UP. GAVE PRN IV MORPHINE AND VALIUM WITH NO RESULTS. REMAINED NPO. INCONTINENT OF LARGE AMOUNTS OF URINE. SKIN IN GROIN IS EXCORIATED D/T MOISTURE. NO BM, BUT HAD 2 SEPERATE TIMES WITH MUCOUS IN BRIEF, WHAT LOOKS LIKE JUST THE SUPPOSITORY. REPOSITIONED TOLERATED. BED ALARM SET FOR PT'S SAFETY. BED IN LOWEST POSITION, CALL LIGHT WITHIN REACH. FIRE SAFETY CHECKS COMPLETED
[2023-05-09 07:54] VITALS: BP 129/110
[2023-05-09 08:21] VITALS: BP 155/99
[2023-05-09 14:46] VITALS: BP 155/99
--- NOTE | 2023-05-09 17:20 | NUR ---
SHIFT SUMMARY PT ALERT TO VERBAL STIMULI BUT PATIENT IS EXTREMEMLY STILLAGUAMISH. PT MOANING WITH REPOSITIONING AND PRIOR TO PAIN MEDICATION ADMINISTRATION. TACHYCARDIA NOTED. FAMILY WISHES TO TAKE PATIENT HOME ON HOSPICE. BED IN LOW POSITION, CALL LIGHT WITHIN REACH, BED ALARM ON.
[2023-05-10 00:39] VITALS: BP 138/79
--- NOTE | 2023-05-10 04:55 | NUR ---
SHIFT SUMMARY PT ALERT TO VERBAL STIMULI. CANNOT MAKE OUT ANY WORDS THE PT IS SAYING BUT MAKES MANY MOANS AND GROANS. MEDICATED PER EMAR FOR PT COMPLAINT OF LEG PAIN. PT KEPT STATING "MY LEGS". D5 INFUISING AT 100 ML/HR. PT IS CURRENTLY NPO, INCLUDING ORAL MEDS. AT BEDSIDE T/O THE NIGHT. BED KEPT IN LOWEST POSITION WITH CALL LIGHT IN REACH.
[2023-05-10 05:28] VITALS: BP 137/80
[2023-05-10 10:22] VITALS: BP 159/103
[2023-05-10 10:51] LABS: BASOPHILS ABSOLUTE AUTO 0.04 K/mm3 (0.00-0.23); BASOPHILS PERCENT AUTO 0 % (0-2); EOSINOPHILS ABSOLUTE AUTO 0.07 K/mm3 (0.00-0.68); EOSINOPHILS PERCENT AUTO 1 % (0-6); Hematocrit 37.2 % (37.0-53.0); Hemoglobin 11.8 g/dL (13.5-17.5); IMMATURE GRAN ABSOLUTE AUTO 0.11 K/mm3 (0.00-0.10); IMMATURE GRAN PERCENT AUTO 1 % (0-1); LYMPHOCYTES ABSOLUTE AUTO 2.64 K/mm3 (0.84-5.20); LYMPHOCYTES PERCENT AUTO 27 % (21-46); MONOCYTES ABSOLUTE AUTO 0.84 K/mm3 (0.16-1.47); MONOCYTES PERCENT AUTO 9 % (4-13); Mean Corpuscular HGB Conc 31.7 g/dL (31.5-36.5); Mean Corpuscular Volume 91 fL (80-100); Mean Platelet Volume 9.4 fL (9.1-12.4); NEUTROPHILS ABSOLUTE AUTO 6.05 K/mm3 (1.96-9.15); NEUTROPHILS PERCENT AUTO 62 % (41-73); Platelet Count 357 K/mm3 (150-400); RDW Coefficient Variation 13.8 % (11.7-14.2); RDW Standard Deviation 46.3 fL (35.1-46.3); Red Blood Cell Count 4.07 M/mm3 (4.30-5.90); White Blood Cell Count 9.75 K/mm3 (4.00-11.30)
[2023-05-10 11:12] LABS: Bun/Creatinine Ratio 8.1 (12.0-20.0); Calcium, Blood 8.9 mg/dL (8.5-10.1); Creatinine, Blood 1.86 mg/dL (0.60-1.20); Potassium, Blood 3.2 mmol/L (3.5-5.5)
[2023-05-10 16:01] VITALS: BP 148/113
--- NOTE | 2023-05-10 17:00 | NUR ---
PT HAS BEEN AOX1 AND VERY CONFUSED. PT IS A HEAVY TWO PERSON FOR ROLLING AND CHANGING. PT TOLERATING CARE AT THIS TIME AND NEEDS REPOSTIONED EVERY COUPLE HOURS. FAMILY HAS BEEN AT BEDSIDE THROUGHOUT THE DAY. BED ALARM IN PLACE. WILL CONTINUE TO MONITOR.
--- NOTE | 2023-05-10 23:10 | NUR ---
PATIENTS REQUEST TO HAVE ALL FOUR SIDE RAILS UP FOR HER . RAILS RAISED PER REQUEST.
[2023-05-11 03:17] VITALS: BP 137/90
--- NOTE | 2023-05-11 06:27 | NUR ---
SHIFT SUMMARY. PATIENT ALERT TO SELF. PATIENT SPEECH IS MUMBLED THAT IS DIFFICULT TO UNDERSTAND. PATIENT WANTING TO TELL STORIES AND JOKES TONIGHT. CALLED AND REPORTED THAT PATIENT WAS HAVING CHEST PAIN-UPON ASSESSMENT PATIENT DENIES CHEST PAIN, B/P STABLE-SEE EMAR, WHEN PATIENT ASKED IF HE WAS HAVING CHEST PAIN BY THIS NURSE AND HIS PATIENT RESPONDED WITH NO MY BACK. AT BEDSIDE T/O NIGHT. PATIENT C/O PAIN MEDICATED PER EMAR. PATIENT IS A HEAVY 2 PERSON ASSIST FOR INCONTINENCE CHANGES AND REPOSITIONING. BED IS LOCKED IN THE LOWEST POSITION WITH CALL LIGHT IN REACH.
[2023-05-11 08:05] VITALS: BP 136/97
--- NOTE | 2023-05-11 10:39 | NUR ---
This AM pts reported patient in pain, pt unable to verbalize but facial grimancing, restless noted. MS IV given. Patient became sick and vomitied, pt refused suction, IV zofran adminsitred. Pallative RN filled out POLST with pts & MD present. Roxinol & zofren given for pain & N/V. Patient left medical unit via ambulance at 1000.
--- NOTE | 2023-05-11 15:52 | NUR ---
POLST Met with pt's spouse to discuss, educate on POLST form. , PC RN and primary RN also present. Spouse and Dr. 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 POLST sent to medical records, placed on chart, provided to transport, original and a copy for hospice sent home with spouse. Assessed pt, he displayed dyspnea with accessory muscle use and nausea with dry heaves. Dr. Childs agreeable to 1 x dose of antiemetic and roxanol prior to discharge home for comfort during transport. Hospice scheduled to admit pt when he gets home today 05/11/23.
== END 2023-05-11 10:13 | disposition hospice, home (50) | DRG 871 ==
LOC: ER 07:30 → MEDS 10:16 → PCU 10:16 → ICUE 10:16 → PCU 17:01 → MEDS 05-04 18:30
PROVIDERS: Emergency Medicine; Family Medicine; Student in an Organized Health Care Education/Training Program; ADMIT Hospitalist
PROC: 3E03329 Introduction of Other Anti-infective into Peripheral Vein, Percutaneous Approach (ICD-10-PCS; principal; 2023-05-02)
PROC: 8E0ZXY6 Isolation (ICD-10-PCS; 2023-05-04)
DX: A41.51 Sepsis due to Escherichia coli [E. coli] (principal); G92.8 Other toxic encephalopathy; U07.1 COVID-19; I50.23 Acute on chronic systolic (congestive) heart failure; R65.21 Severe sepsis with septic shock; N17.9 Acute kidney failure, unspecified; G93.49 Other encephalopathy; Z51.5 Encounter for palliative care; Z66 Do not resuscitate; F05 Delirium due to known physiological condition; E87.0 Hyperosmolality and hypernatremia; F03.911 Unspecified dementia, unspecified severity, with agitation; I27.20 Pulmonary hypertension, unspecified; K74.60 Unspecified cirrhosis of liver; K80.20 Calculus of gallbladder without cholecystitis without obstruction; K31.89 Other diseases of stomach and duodenum; I11.0 Hypertensive heart disease with heart failure; B37.2 Candidiasis of skin and nail; G35 Multiple sclerosis; I25.10 Atherosclerotic heart disease of native coronary artery without angina pectoris; I49.3 Ventricular premature depolarization; H91.90 Unspecified hearing loss, unspecified ear; I48.0 Paroxysmal atrial fibrillation; G89.29 Other chronic pain; I45.10 Unspecified right bundle-branch block; E87.6 Hypokalemia; K59.00 Constipation, unspecified; Z88.6 Allergy status to analgesic agent; Z88.8 Allergy status to other drugs, medicaments and biological substances; Z79.82 Long term (current) use of aspirin; Z79.891 Long term (current) use of opiate analgesic
CPT/HCPCS: 0241U; 36415; 71045; 73502; 74176; 76705; 80048; 80053; 81001; 82140; 82803; 83605; 83690; 83735; 83880; 84443; 84484; 85014; 85018; 85025; 85027; 85610; 87040; 87077; 87086; 87186; 92526; 92610; 93005; 93010; 93306; 94640; 94760; 94762; 96361; 96374; 96375; 97162; 97530; 99285-25; A9270; C1751; J0696; J1644; J2060; J2270; J2405; J3010; J3360; J3475; J3480; J7030; J7050; J7070; J7120; P9612